=== PATIENT | male | born 1970 | race Caucasian/White ===

== ENCOUNTER → 2016-05-06 | Outpatient (CLI) | payer MEDICARE ==
[~2016-05-06] MED LIST: AMARYL2 MG PO; CIPROFLOXACIN500 M4 PO; GEMFIBROZIL600 MG PO; HUMALOG100 U/ML SC; LISINOPRIL2.5 MG PO; NEURONTIN300 MG PO; PERCOCET 325 MG1 TA3 PO
== END | disposition home or self-care (01) ==
LOC: RAD 15:37
DX: M54.31 Sciatica, right side (principal); M54.5 Low back pain

== ENCOUNTER → 2016-05-13 | Outpatient (CLI) | payer MEDICARE | END | disposition home or self-care (01) | LOC: MRI 07:00 | DX: M54.31 Sciatica, right side (principal) ==

== ENCOUNTER → 2018-08-16 | Outpatient (CLI) | payer OTHER ==
[2018-08-16 12:47] LABS: BASO # 0.1 10*3/uL (0.0-0.1); BASO % 0.5 % (0.0-1.0); EOS # 0.1 10*3/uL (0.0-0.4); EOS % 0.6 % (1.0-4.0); HEMATOCRIT 32.5 % (42.0-52.0); HEMOGLOBIN 10.5 g/dl (14.0-18.0); LYMPH # 0.6 10*3/uL (1.3-4.4); LYMPH % 5.7 % (27.0-41.0); MEAN CELL VOLUME 93.1 fl (80.0-94.0); MEAN CORPUSCULAR HGB 30.1 pg (27.0-31.0); MEAN CORPUSCULAR HGB CONC 32.3 g/dl (33.0-37.0); MEAN PLATELET VOLUME 9.3 fl (9.6-12.3); MONO % 10.2 % (3.0-9.0); NEUT # 7.9 10*3/uL (2.3-7.9); NEUT % 81.8 % (47.0-73.0); PLATELET COUNT AUTOMATED 385 10*3/uL (130-400); RED BLOOD COUNT 3.49 10*6/uL (4.50-5.90); RED CELL DISTRI WIDTH 14.3 % (0-14.5); WHITE BLOOD COUNT 9.7 10*3/uL (4.8-10.8)
[2018-08-16 13:10] LABS: CHLORIDE 95 mmol/L (98-107); POTASSIUM 4.7 mmol/L (3.5-5.1); SODIUM 130 mmol/L (136-145)
[2018-08-16 13:18] LABS: ALBUMIN 2.1 gm/dl (3.1-4.5); ALKALINE PHOSPHATASE 670 U/L (45-117); BILIRUBIN, DIRECT 0.8 mg/dL (0.0-0.2); BUN 19 mg/dl (7-24); CREATININE 1.14 mg/dL (0.70-1.30); SGOT/AST 40 IU/L (3-35); SGPT/ALT 77 U/L (12-78); TOTAL PROTEIN 7.6 gm/dL (6.4-8.2)
== END | disposition home or self-care (01) ==
LOC: LAB 12:14
PROVIDERS: Physician Assistant
DX: K56.609 Unspecified intestinal obstruction, unspecified as to partial versus complete obstruction (principal)

== ENCOUNTER → 2019-01-17 | Outpatient (CLI) | payer OTHER ==
[2019-01-19 00:05] LABS: GONOCOCCUS BY NAA Negative (Negative)
== END | disposition home or self-care (01) ==
LOC: LAB 14:54
PROVIDERS: Physician Assistant
DX: B00.9 Herpesviral infection, unspecified (principal); R21 Rash and other nonspecific skin eruption; Z20.2 Contact with and (suspected) exposure to infections with a predominantly sexual mode of transmission; Z11.59 Encounter for screening for other viral diseases